=== PATIENT | female | born 2005 | race Caucasian/White ===

== ENCOUNTER 2024-07-16 12:15 | Emergency (ER) | payer BC, SELFPAY ==
[2024-07-16 12:16] VITALS: BP 97/72; PULSE 91; RESP 18; TEMP 37.2; O2SAT 100; BMI 17.6
[2024-07-16 12:37] LABS: Absolute Lymphocyte Count 0.87 X10^3/uL (0.83-4.51); Absolute Neutrophil Count 2.6 X10^3/uL (2.0-7.7); Basophil# 0.01 X10^3/uL; Basophil% 0.2 % (0-1); Hematocrit 43.4 % (37-47); Hemoglobin 14.5 g/dL (12.0-15.0); Lymphocyte # 0.87 X10^3/ul (0.83-4.51); Lymphocyte % 21.1 % (19-41); Mean Corp Hgb Conc 33.4 g/dL (32-36); Mean Corpuscular Hgb 29.7 pg (27.0-32.0); Mean Corpuscular Volume 88.8 fL (81-99); Mean Platelet Vol. 9.2 fl (6.2-12.0); Monocyte# 0.59 X10^3/uL; Monocyte% 14.3 % (0-10); NRBC Flagged by Analyzer 0 % (0-5); Neutrophil # 2.64 X10^3/uL (2.7-7.7); Neutrophil % 64.2 % (47-70); Platelet Count 182 K/mm3 (150-450); RBC Distribution Width CV 13.2 % (11.6-14.6); RBC Distribution Width SD 42.8 fl (35.1-43.9); Red Blood Count 4.89 M/mm3 (4.2-5.4); White Blood Count 4.1 K/mm3 (4.4-11.0)
[2024-07-16 12:54] LABS: ALB/GLOB Ratio 0.9 RATIO (0.9-2.4); AST(SGOT) 33 U/L (15-37); Alanine Aminotransfer ALT/SGPT 26 U/L (13-56); Albumin, Serum 4.1 g/dL (3.2-5.0); Alkaline Phosphatase 88 U/L (45-117); Anion Gap 9 (5-15); BUN 16 mg/dL (7-18); BUN/Creat Ratio 19.2 RATIO (10-20); Calcium,Total 9.7 mg/dL (8.5-10.1); Chloride 100 mmol/L (98-107); Creatinine, Serum 0.83 mg/dL (0.55-1.02); EST Glomerular Filtration Rate 93 mL/min (>60); Est Glom Filt Rate - Afr Amer 113 mL/min (>60); Estimated Creatinine Clearance 78.07 ml/min; Globulin 4.5 g/dL (2.2-4.2); Glucose 84 mg/dL (74-106); Internal QC Validated? YES +Cl - CLEAR BKGD; Potassium 3.8 mmol/L (3.5-5.1); Pregnancy, Serum, hCG Quali. NEGATIVE Negative; Protein, Total 8.6 g/dL (6.4-8.2); Record Kit Lot#, Serum Preg. 856586; Sodium Level 134 mmol/L (136-145)
--- NOTE | 2024-07-16 13:19 | EKG12_ITS ---
Test Reason : abd pain Blood Pressure : */* mmHG Vent. Rate : 69 BPM Atrial Rate : 69 BPM P-R Int : 124 ms QRS Dur : 78 ms QT Int : 402 ms P-R-T Axes : 57 50 55 degrees QTcB Int : 430 ms Normal sinus rhythm Normal ECG Confirmed by LESLIE FLYNN, ROSALIO ([id number]), assistant editor VANESSA CHE ([id number]) on 07/18/2024 7:01:44 AM Referred By: Confirmed By: ROSALIO NELSON MD
[2024-07-16] MEDS: 0.9% Normal Saline (1000mL) 1,000 ML 999 ML IV (13:28)
--- NOTE | 2024-07-16 13:28 | EX.ED.DYSGE1 ---
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 She began having fever, along with nausea and vomiting on Monday, approximately 4 days ago. Her mother states that she brought her home, and has not been improving. She feels very weak and tired, and dehydrated. She is supposed to have upper endoscopy performed by gastroenterology in [place] this week. She has not vomited in the last 24 hours. However, they went to urgent care, and she was near syncopal there. States she felt very lightheaded and almost passed out. She states that she has continued aching in her midsternal chest. [facility] Medical History Primary ovarian insufficiency Allergy/AdvReac Type Severity Reaction Status Date / Time No Known Allergies Allergy Verified 07/16/24 12:16 Family History no significant family his Surgical History no surgical history Social History Smoking Status: Never smoker ROS ROS ED ROS Narrative Constitutional: Positive fever, no chills. HEENT: No sore throat. No neck pain. Cardiovascular: Positive midsternal chest pain. No palpitations. No pedal edema. Respiratory: No cough, no shortness of breath. Abdominal: No abdominal pain. Positive nausea and vomiting Genitourinary: No dysuria. No hematuria. Musculoskeletal: No myalgias. No arthralgias. Neurologic: No headaches. No dizziness. Positive near syncope/lightheadedness. EXAM Physical Exam Narrative Exam Narrative: Afebrile. Vital signs noted. Nontoxic-appearing. Cardiovascular examination reveals a regular rate and rhythm. Lungs are clear to auscultation bilaterally. Abdomen is soft and nontender without guarding or rebound. Positive bowel sounds. Neurological examination shows her to be awake, alert, and oriented. Const Vital Signs: 07/16/24 12:16 07/16/24 14:16 Temperature 99.0 F Temperature Source Oral Pulse Rate 91 Respiratory Rate 18 14 Blood Pressure 97/72 105/71 Blood Pressure Mean 80 82 Pulse Ox 100 Oxygen Delivery Method Room Air Room Air MDM MDM MDM Narrative Medical decision making narrative: Differential diagnosis includes but not limited to acute coronary syndrome versus GERD/reflux versus her [employer]. Also the differential would be dehydration versus other electrolyte abnormality. Baseline laboratories were obtained per protocol and I reviewed them. She has slightly low white count/neutropenia 4.1 which I think is nonspecific, hemoglobin normal at 14.5 with hematocrit 43.4, platelet count normal at 182. Sodium slightly low 134 with BUN of 16 and creatinine 0.83, no overt dehydration. Glucose normal at 84. LFTs are grossly unremarkable. Serum is negative. I will add a lipase. EKG obtained and interpreted by myself independently as normal sinus rhythm at 69 bpm without ectopy or acute ST changes. QTc normal at [address] changes/no STEMI. I reviewed her lipase and is negative. Hence, I doubt pancreatitis. She had been bolused normal saline and states she only was able to urinate a small amount. This was sent for evaluation. On review of her urinalysis, she did have 150 ketones consistent with mild dehydration. While she had 5-10 WBCs, there are 5-10 squamous epithelial cells so I think is a contaminated specimen, and I do not feel antibiotics are indicated for a urinary tract infection. At this point in time, she states her nausea is more from her midsternal chest discomfort. I did have a chest x-ray and interpreted it myself independently. I see no evidence of an acute process, no pneumothorax, no pneumonia. I reviewed the radiology report which confirms my independent interpretation. At this point in time, she was offered something for home use for nausea but states it is more the discomfort that she feels in her chest that she feels is related to [employer]. I feel she can be discharged to follow-up with her family development specialist for upper endoscopy tomorrow. Patient and mother are agreeable to the plan. Return instructions to the emergency department reviewed. Disposition is discharged home in stable condition. History & Record Review Discussion w/independent historian: Patient Lab Data Attestation: I reviewed the patient's lab results. Labs: Laboratory Results - last 24 hr 07/16/24 07/16/24 12:30 14:29 WBC 4.1 L RBC 4.89 Hgb 14.5 Hct 43.4 MCV 88.8 MCH 29.7 MCHC 33.4 RDW Std Deviation 42.8 RDW Coeff of Bradley 13.2 Plt Count 182 MPV 9.2 Immature Gran % (Auto) 0.200 Neut % (Auto) 64.2 Lymph % (Auto) 21.1 [place] % (Auto) 14.3 H Eos % (Auto) 0.0 Baso % (Auto) 0.2 Absolute Neuts (auto) 2.6 Absolute Lymphs (auto) 0.87 Nucleated RBC % 0 Sodium 134 L Potassium 3.8 Chloride 100 Carbon Dioxide 24.0 Anion Gap 9 BUN 16 Creatinine 0.83 Estim Creat Clear Calc 78.07 Est GFR (MDRD) Af Amer 113 Est GFR (MDRD) Non-Af 93 BUN/Creatinine Ratio 19.2 Glucose 84 Calcium 9.7 Total Bilirubin 0.50 AST 33 ALT 26 Alkaline Phosphatase 88 Total Protein 8.6 H Albumin 4.1 Globulin 4.5 H Albumin/Globulin Ratio 0.9 Lipase 68 Serum , Qual NEGATIVE Urine Color Yellow Urine Clarity Clear Urine pH 6.0 Ur Specific [place] 1.015 Urine Protein 30 H Urine Glucose (UA) Normal Urine Ketones 150 A* Urine Occult Blood 10 H Urine Nitrite Negative Urine Bilirubin Negative Urine Urobilinogen Normal Ur Leukocyte Esterase 100 H Urine RBC 0-5 SEEN Urine WBC 5-10 SEEN Ur Squamous Epith Cells 5-10 SEEN Ur Renal Epithelial Cell 0-5 SEEN Urine Bacteria 4+ Urine Mucus 0 SEEN Radiography Diagnostic Testing: Clinical Impression(s) from Imaging Studies Chest X-Ray 07/16/24 13:30 IMPRESSION: No acute cardiopulmonary process. Reading Location: [facility] Discharge Plan Triage Chief Complaint: Nausea/Vomiting/Diarrhea ED Provider: Segundo Benz Dx/Rx/DC Orders Clinical Impression: Chest pain, Nausea, Near syncope, Mild dehydration Instructions: ED Chest Pain, Uncertain Cause, ED Dehydration (Adult), ED Near-Fainting, Uncertain Cause Primary Care Provider: Care Physician,No Primary Referrals: Care Physician,No Primary [Primary Care Provider] - Activity Restrictions/Additional Instructions: Follow-up with gastroenterology in [place] as scheduled tomorrow for your upper endoscopy. Return to the emergency department with sustained high fever, new or worsening symptoms. Print Language: [place] Disposition Disposition: Home, Self Care
--- NOTE | 2024-07-16 13:30 | RAD_ITS ---
EXAM: XR Chest, 1 View CLINICAL INDICATION: TECHNIQUE: Frontal view of the chest. COMPARISON: No relevant prior studies available. FINDINGS: LUNGS AND PLEURAL SPACES: Unremarkable. No consolidation. No pneumothorax. HEART: Unremarkable. No cardiomegaly. MEDIASTINUM: Unremarkable. Normal mediastinal contour. BONES/JOINTS: Unremarkable. No acute fracture. RAD/Chest 1 View (Portable) IMPRESSION: No acute cardiopulmonary process. Reading [facility]
[2024-07-16 13:39] LABS: Lipase 68 U/L (13-75)
[2024-07-16 14:16] VITALS: BP 105/71; RESP 14
[2024-07-16 14:34] LABS: Mucous, Urine 0 SEEN /hpf (<or=2+)
[2024-07-16 14:39] LABS: Glucose, Dipstick Normal (Normal); Leukocyte Esterase-Dipstick 100 /ul (Negative); Nitrite-Dipstick Negative (Negative); Occult Blood-Urine 10 /ul (Negative); Protein-Dipstick 30 mg/dl (Negative); Specific Gravity, Urine 1.015 (1.002-1.030); Urine Bilirubin Dipstick Negative (Negative); Urine Urobilinogen Normal (Normal)
[2024-07-16 14:46] LABS: Color, Urine Yellow (Yellow); Urine Clarity Clear (Clear)
[2024-07-16 14:47] LABS: Ketone-Dipstick 150 mg/dl (Negative)
--- NOTE | 2024-07-16 14:47 | ED.RN ---
Critical lab of [address] Benz notified
[2024-07-16 15:00] LABS: Red Blood Cells-Urine 0-5 SEEN /hpf (0-5); White Blood Cells 5-10 SEEN /hpf (0-5)
[2024-07-16 15:01] LABS: Bacteria 4+ /hpf (None Seen); Renal Epithelial Cells 0-5 SEEN /hpf (0-5); Squamous Epithelial Cells - UA 5-10 SEEN /hpf (5-10)
[2024-07-16 15:10] VITALS: BP 105/71; PULSE 91; RESP 14; TEMP 37.2; O2SAT 100
== END 2024-07-16 15:13 | disposition home or self-care (01) ==
PROVIDERS: Emergency Provider Emergency Medicine; Visit Provider Emergency Medicine
DX: R07.89 Other chest pain (principal); R11.2 Nausea with vomiting, unspecified; E86.0 Dehydration; R55 Syncope and collapse; K21.9 Gastro-esophageal reflux disease without esophagitis
CPT/HCPCS: 71045; 80053; 81001; 83690; 84703; 85025; 93005; 96360; 99283; A4216